=== PATIENT | male | born 1965 | race Caucasian/White ===

== ENCOUNTER 2019-12-22 21:11 | Inpatient (IN) | payer BC, SELFPAY ==
[2019-12-22] VITALS (9 sets, daily range): BP systolic 70–109; BP diastolic 46–64; PULSE 39–67; RESP 10–19; TEMP 36.7–37.1; O2SAT 95–100
--- NOTE | ~2019-12-22 | CT_ITS ---
EXAMINATION: CT brain wo con DATE: 12/23/2019 00:16 INDICATION: Dizziness. Bradycardia. Nausea. TECHNIQUE: Computed tomography (CT) of the head was performed without intravenous contrast. Sagittal and coronal reconstructions were performed. The mA was adjusted according to patient size. Iterative reconstruction technique was employed. The dose-length product was 681.00 mGy-cm. COMPARISON: None FINDINGS: No acute intracranial hemorrhage, acute infarction or abnormal extra axial fluid collection. There is mild scattered white matter hypoattenuation consistent with chronic small vessel ischemic disease. Ventricles are normal and symmetric. No mass/mass effect. The orbits, paranasal sinuses and mastoid a ir cells are normal. IMPRESSION: 1. No acute intracranial process. 2. Mild scattered white matter hypoattenuation consistent with chronic small vessel ischemic disease. Reviewed, dictated and finalized at location A. BULANCE PARAMEDIC IMPRESSION: 1. No acute intracranial process. 2. Mild scattered white matter hypoattenuation consistent with chronic small ve ssel ischemic disease.
--- NOTE | ~2019-12-22 | XR_ITS ---
EXAMINATION: XR chest 1V portable DATE: 12/22/2019 23:29 INDICATION: Chest pain, cough and shortness of breath TECHNIQUE: frontal view of the chest was obtained. COMPARISON: None FINDINGS: No focal airspace opacities, pleural effusion or pneumothorax. The cardiomediastinal silhouette is no rmal. IMPRESSION: 1. No acute cardiopulmonary disease. Reviewed, dictated and finalized at location A. CIATE DEAN
--- NOTE | 2019-12-22 21:17 | ECG_ITS ---
Measurements Intervals [place] Rate: 41 P: [place]: 0 QRS: 126 QRSD: 114 T: 71 QT: 462 QTc: 386 Interpretive Statements JUNCTIONAL RHYTHM RIGHT AXIS DEVIATION INTRAVENTRICULAR CONDUCTION DELAY BORDERLINE R WAVE PROGRESSION, ANTERIOR LEADS BORDERLINE ST-T WAVE ABNORMALITY- LATERAL LEADS BASELINE ARTIFACT- I, II, III, AVL, AVF, V1, V3 ABNORMAL ECG Electronically Signed On 12-23-2019 6:58:03 ACCOUNT SUPPORT ANALYST by Jeferson Florence D.O.
--- NOTE | 2019-12-22 21:28 | ED.DIZZY ---
HPI - Dizziness General Chief Complaint: Dizziness Stated Complaint: sob Time Seen by Provider: 12/22/19 21:27 Source: patient and RN notes reviewed Mode of arrival: ambulatory Limitations: no limitations History of Present Illness HPI Narrative: Pt is a 54 y/o male who presents to the ED with c/o lightheadedness starting this evening. He notes that he had a similar episode of lightheadedness roughly 1 week ago, and states that he has subsequently stopped taking his medications for the past week. Pt notes that he began taking his medications again around 10 AM this morning. He states that he hasn't eaten anything since breakfast today, noting that he hasn't had much of an appetite. Pt states that he has had intermittent lightheadedness, mild chest discomfort, generalized weakness, and SOB since 17:30 this evening. He notes that he develops lightheadedness and an urge to have a BM when he stands up. Pt denies any diarrhea. MD elicited complaint: lightheadedness Onset (ago): hour(s) (4) Description: lightheadedness History of similar symptoms: Yes Exacerbating factors: change in body position Associated symptoms: shortness of breath and other (chest discomfort; decreased intake; generalized weakness) Related Data Allergies Allergy/AdvReac Type Severity Reaction Status Date / Time No Known Allergies Allergy Verified 12/22/19 21:24 Review of Systems Review of Systems: All systems reviewed & are unremarkable except as noted in HPI and below Constitutional: Constitutional: Reports weakness (generalized) and Reports other (decreased intake) Cardiovascular: Cardiovascular: Reports other (chest discomfort) Respiratory: Respiratory: Reports dyspnea Gastrointestinal: Gastrointestinal: Denies diarrhea Neurologic: Reports other (lightheadedness) [facility] Past Medical History Medical History (Updated 12/23/19 @ 00:14 by Celso Izaguirre MD) HLD (hyperlipidemia) HTN (hypertension) Surgical History Surgical History (Updated 12/23/19 @ 00:07 by Piotr Moore MD) History of appendectomy Surgical history unknown Comments Business Quality Assurance Analyst is Dr. Ramon Camargo. Exam Cardio: Rate: bradycardic Heart sounds: no murmurs Course Course Emergency Course: Shortly after my initial evaluation he became more bradycardic, hypotensive, and diaphoretic. Repeat EKG clearly demonstrated no P-wave. Attempted atropine without success. I ordered glucagon and insulin for possible AV hanny blockade. I was told that we had run out of both of those medications. After multiple calls to the pharmacy they eventually were able to get us the medications. After administration he returned to sinus. Consultations Consultation #1: Discussed case with rubber thread spooler, Dr. Pradhan. Admit to the hospitalist and they will consult. Date: 12/22/19 Time: 22:44 Consultation #2: Discussed case with hospitalist, Dr. Moore. Accepted admission. Date: 12/22/19 Time: 23:03 Vital Signs Vital signs: Vital Signs Temperature 36.7 C 12/22/19 21:14 Pulse Rate 43 L 12/22/19 21:14 Respiratory Rate 16 12/22/19 21:14 Blood Pressure 93/46 L 12/22/19 21:14 Pulse Oximetry 99 12/22/19 21:14 Temperature 37.1 C 12/22/19 21:31 Pulse Rate 62 12/22/19 23:46 Respiratory Rate 19 12/22/19 22:45 Blood Pressure 103/63 12/22/19 23:46 Pulse Oximetry 96 12/22/19 22:45 MDM - Dizziness Differential Diagnosis Differential diagnosis: Likely adverse reaction to drug, orthostatic hypotension and other (NSTEMI, vasvagal episode) Medical Records Attestation: I reviewed the patient's medical records. Lab Data Attestation: I reviewed the patient's lab results. Result diagrams: 12/22/19 21:48 12/22/19 21:48 Labs: Lab Results 12/22/19 12/22/19 12/22/19 Range/Units 21:46 21:46 21:48 WBC 13.2 H (4.5-10.0) K/mm3 RBC 5.23 (4.6-6.20) M/mm3 Hgb 15.4 (14.0-18.0) g/dL Hct 45.3 (42.0-52.0) % MCV 86.6 (80-100) fl M
[2019-12-22] MEDS: ONDANSETRON INJ 4 MG/2 ML VIAL IV PUSH (21:48)
[2019-12-22] MEDS: SODIUM CHLORIDE 0.9% IV 2,000 ML 999 ML IV CONT (21:48)
[2019-12-22 21:55] LABS: Basophils Absolute Auto 0.1 K/mm3 (0.0-0.1); Basophils Percent Auto 0.4 % (0.2-1.2); Eosinophils Absolute Auto 0.1 K/mm3 (0-0.3); Eosinophils Percent Auto 0.4 % (0-4.4); Hematocrit 45.3 % (42.0-52.0); Hemoglobin 15.4 g/dL (14.0-18.0); Immature Granulocyte Absolute 0.05 K/mm3 (0.00-0.031); Immature Granulocyte Percent A 0.4 % (0-0.5); Lymphocytes Absolute Auto 2.13 K/mm3 (0.9-3.2); Lymphocytes Percent Auto 16.2 % (18.3-44.2); Mean Corpuscular Hemoglobin 29.4 pg (26-34); Mean Corpuscular Volume 86.6 fl (80-100); Mean Platelet Volume 9.9 fl (7.4-10.4); Monocytes Absolute Auto 1.1 K/mm3 (0.1-0.6); Monocytes Percent Auto 8.4 % (2.6-8.5); Neutrophils Absolute Auto 9.8 K/mm3 (1.3-6.7); Neutrophils Percent Auto 74.2 % (45.5-73.1); Platelet Count Result 240 k/mm3 (150-375); Red Blood Count 5.23 M/mm3 (4.6-6.20); Red Cell Distribution Width 13.7 % (11.5-14.5); White Blood Count 13.2 K/mm3 (4.5-10.0)
[2019-12-22 22:06] LABS: Prothrombin Time 12.7 Seconds (11.1-14.7)
[2019-12-22 22:07] LABS: Partial Thromboplastin Time 33.7 SECONDS (22.3-36.8)
[2019-12-22 22:07] LABS: Blood Urea Nitrogen 16 mg/dL (9-20); Calcium 9.2 mg/dL (8.4-10.2); Carbon Dioxide 21 mmol/L (22-30); Chloride 102 mmol/L (98-107); Estimated Glomerular Filt Rate 42; Glucose 149 mg/dL (75-110); Potassium 3.9 mmol/L (3.4-5.0); Sodium 137 mmol/L (137-145)
[2019-12-22 22:19] LABS: Troponin I < 0.012 ng/mL (0.000-0.034)
[2019-12-22] MEDS: DEXTROSE 50% 25 GM/50 ML SYRINGE IV PUSH (22:19)
[2019-12-22] MEDS: ATROPINE SULFATE 1 MG/10 ML SYRINGE (22:20)
[2019-12-22] MEDS: INSULIN HUMAN REGULAR (*BKC) 100 UNITS/ML 10 UNITS IV PUSH (22:24)
[2019-12-22] MEDS: GLUCAGON FOR INJ 1 MG VIAL 5 MG IV PUSH (22:26)
--- NOTE | 2019-12-22 22:36 | ECG_ITS ---
Measurements Intervals [place] Rate: 37 P: [place]: 0 QRS: 120 QRSD: 107 T: 68 QT: 507 QTc: 400 Interpretive Statements SLOW JUNCTIONAL RHYTHM INCOMPLETE RIGHT BUNDLE BRANCH BLOCK BORDERLINE R WAVE PROGRESSION, ANTERIOR LEADS ABNORMAL ECG Electronically Signed On 12-23-2019 7:01:22 CAB DRIVER by Jeferson Florence D.O.
[2019-12-22] MEDS: ONDANSETRON INJ 4 MG/2 ML VIAL (22:43)
--- NOTE | 2019-12-22 22:43 | ECG_ITS ---
Measurements Intervals [place] Rate: 67 P: 46 MN: 188 QRS: 262 QRSD: 113 T: 48 QT: 430 QTc: 455 Interpretive Statements SINUS RHYTHM RIGHT AXIS DEVIATION INCOMPLETE RIGHT BUNDLE BRANCH BLOCK LOW VOLTAGE- LIMB LEADS BORDERLINE R WAVE PROGRESSION, ANTERIOR LEADS BASELINE ARTIFACT- I, II, III, AVL, AVF, V1 BORDERLINE ECG Electronically Signed On 12-23-2019 7:03:02 MARINE CHRONOMETER ASSEMBLER by Jeferson Florence D.O.
--- NOTE | 2019-12-22 22:46 | PC.NURSE ---
At 2199 Patient stated he felt like he was going to pass out. EDP in room as well as this nurse. At 2200 VORB per give 1mg atropine IVP. No change in patient's HR. At [address] Izaguirre give 2 amps of D50, 10 units of regular insulin, and 5mg of Glucagon. Patient started to have change in HR, slight increase. EPD in room with this nurse and the patient. Patient has IV fluids going via gravity. At 2224 VORB per EDP obtain bedside glucose. At 2229 patient did start to vomit so VORB per EDP give 4mg of Zofran IVP per . Patient had approx 400ml emesis output. Patient resting on stretcher. Patient's family at bedside. Patient a/o x4. Patient states he does still feel dizzy.
[2019-12-22] MEDS: ATROPINE SULFATE 1 MG/ML VIAL IV PUSH (23:23)
[2019-12-23] VITALS (11 sets, daily range): BP systolic 103–121; BP diastolic 55–68; PULSE 51–65; RESP 18–20; TEMP 36.6–36.8; O2SAT 93–97; BMI 31.7
--- NOTE | 2019-12-23 | ECHO_ITS ---
Patient Info Name: Jacqeus Zamora Age: 54 years : 1965 Gender: Male Ht: 75 in Wt: 250 lbs BSA: 2.48 m2 HR: 60 bpm BP: 115 / 61 mmHg Heart Rhythm: Bradycardia Technical Quality: Good Exam Date: 12/23/2019 9:11 AM Exam Location: [facility] Patient Status: Inpatient Admit Date: 12/22/2019 Staff Ordering Physician: Piotr Moore MD Lead Software Test Engineer: Christian Moreira RDCS Attending Provider: Piotr Moore MD Referring Physician: Teresa TREVIZO; Exam Type: CA echo doppler color flow Study Info Indications R00.1 - Bradycardia, unspecified Complete two-dimensional, color flow and Doppler transthoracic echocardiogram is performed. Strain analysis performed. History/Risk Factors Symptomatic bradycardia; CAD and HTN. Summary 1. Left ventricular chamber dimension is normal. 2. Left ventricular systolic function is normal, estimated at 65-70%. 3. There is moderately increased left ventricular wall thickness. 4. The left ventricular diastolic function is grade II diastolic dysfunction. 5. Left atrial chamber dimension is mildly enlarged. 6. There is mild aortic valve calcification. 7. There is mild mitral valve regurgitation. 8. There is mild tricuspid valve regurgitation. 9. Mild pulmonary hypertension, estimated pulmonary arterial systolic pressure is 37 mmHg. Left Ventricle Left ventricular chamber dimension is normal. Left ventricular systolic function is normal, estimated at 65-70%. There is moderately increased left ventricular wall thickness. The left ventricular diastolic function is grade II diastolic dysfunction. Right Ventricle Right ventricular chamber dimension is normal. Right ventricular systolic function is normal. Left Atria Left atrial chamber dimension is mildly enlarged. Right Atria Right atrial chamber dimension is normal. Aortic Valve The aortic valve is trileaflet. There is no aortic valve stenosis. There is trace aortic valve regurgitation. There is mild aortic valve calcification. Pulmonic Valve The pulmonic valve is normal. There is no pulmonic valve stenosis. There is trace pulmonic regurgitation. Mitral Valve The mitral valve has normal leaflets and calcified annulus. There is no mitral valve stenosis. There is mild mitral valve regurgitation. Tricuspid Valve The tricuspid valve leaflets are normal. There is no significant tricuspid valve stenosis. There is mild tricuspid valve regurgitation. Mild pulmonary hypertension, estimated pulmonary arterial systolic pressure is 37 mmHg. Pericardium/Pleural The pericardium appears normal. There is trivial pericardial effusion. Inferior Vena Cava Normal inferior vena cava with <50% collapse upon inspiration consistent with elevated right atrial pressure, 10 mmHg. Aorta The aortic root size at the sinus of Valsalva is normal. The prox ascending aorta size is normal. Left Ventricular Outflow Tract Name Value Normal LVOT 2D LVOT Diameter 2.2 cm LVOT Doppler LVOT Peak Gradient 8 mmHg LVOT Mean Gradient 4 mmHg LVO
--- NOTE | 2019-12-23 | PM.IMHP ---
H&P: HPI History of Present Illness Chief complaint: symptomatic bradycardia Narrative: This is a 54 year old male with known CAD+, HTN, hyperlipidemia who presented to the hospital with a complaint of dizziness and feeling like he was going to pass out earlier today. The patient began to feel dizzy around 5:30 pm while he was walking around at home and decided to go lie down. Every time he tried to get up from his bed he felt like he was going to black out and decided to call EMS. The patient was gilmar to the hospital and found to be in a junctional bradycardia. His bradycardia worsened and he became hypotensive. The patient did respond to glucagon. He converted back to a sinus rhythm and his blood pressure normalized. The patient mentioned that today he took his Verapamil and Bystolic around 10 am but hasn't been on these medications for the past 7-10 days. He also had a similar episode of near syncope about 3 weeks ago while he was on these medications but never went to the doctor at that time. Associated symptoms tonight included nausea and mild headache but no chest pain, palpitations, numbness, tingling, blurry vision, abdominal pain, vomiting, dysuria, hematuria, diarrhea, rectal bleeding, LE swelling, or focal weakness. He denies any recent head trauma or seizure like activity. Cardiology has been consulted by ER provider. Review of Systems Review of Systems: All systems reviewed & are unremarkable except as noted in HPI and below PMFSH Past Medical History Medical History (Updated 12/23/19 @ 09:56 by Jacinto Omer MD) Coronary artery disease HLD (hyperlipidemia) HTN (hypertension) Surgical History Surgical History History of appendectomy Surgical history unknown Family History Family History Mother Heart disease Hypertension Dementia Father Heart disease Hypertension Social History Social History Smoking packs per day: 1 Smoking cigarettes per day: 20.0 Years smoked: 40 Smoking pack-years: 40.00 Smoking status: Current every day smoker Tobacco type: cigarettes Alcohol intake: current Drinks per week: 12 Gender identity (if verbalized by the patient): Male Spiritual care concerns: No Agree to blood products: Yes Meds Home Medications and Allergies Home Medications Medication Instructions Recorded Confirmed Type Vascepa 2 g PO BID 12/23/19 12/23/19 History aspirin [Aspir-81] 81 mg PO DAILY 12/23/19 12/23/19 History clopidogrel 75 mg PO DAILY 12/23/19 12/23/19 History niacin [Endur-Acin] 750 mg PO BID 12/23/19 12/23/19 History ramipril [Altace] 5 mg PO Q12HR #60 cap 12/23/19 Rx simvastatin 40 mg PO DAILY 12/23/19 12/23/19 History Allergies Allergy/AdvReac Type Severity Reaction Status Date / Time No Known Allergies Allergy Verified 12/22/19 21:24 Vital Signs Vital Signs - 24 hr 12/22/19 21:14 12/22/19 21:19 12/22/19 21:25 Temperature 36.7 C Pulse Rate 43 L 42 L Respiratory Rate 16 12 Blood Pressure 93/46 L 99/57 L Pulse Oximetry 99 100 100 12/22/19 21:31 12/22/19 22:12 12/22/19 22:34 Temperature 37.1 C Pulse Rate 42 L 39 L 64 Respiratory Rate 10 L 13 16 Blood Pressure 97/64 L 70/46 L 95/54 L Pulse Oximetry 99 95 99 12/22/19 22:45 12/22/19 23:45 12/22/19 23:46 Temperature Pulse Rate 67 64 62 Respiratory Rate 19 Blood Pressure 106/64 109/64 103/63 Pulse Oximetry 96 Exam Const: General: cooperative, healthy appearing, no acute distress, alert and awake Nutritional Appearance: well nourished Orientation/consciousness: patient oriented x3 HENMT: Head: normal to inspection General nose exam: Normal external nose present Face and sinus: normal facial exam Mouth: Yes Normal oral and palatal mucosa present and Yes oropharynx normal Eyes: Pupils
[2019-12-23] MEDS: SODIUM CHLORIDE 0.9% IV 1,000 ML 100 ML IV CONT ×2 (00:27→09:43)
--- NOTE | 2019-12-23 01:05 | ADMGEN ---
This patient, Jacques Zamora, was admitted to IMU Room 210-01 from ER 12/23/19 0020. Patient/family oriented to hospital policies and general routines including ID bracelet, bed and alarms, visiting hours, pain management, procedures, bathroom and other care routines, personal items, smoking policy, room service/diet, and visiting hours. Valuables list has been completed. Information on how to activate the Rapid Response Team has been discussed. Patient/Family are encouraged to report perceived risks to care and to ask questions if they do not understand what they are told or what they should do.
[2019-12-23 01:30] LABS: Glucose Point of Care 310 (65-105)
[2019-12-23 04:54] LABS: Basophils Percent Auto 0.3 % (0.2-1.2); Eosinophils Percent Auto 0.2 % (0-4.4); Hematocrit 38.9 % (42.0-52.0); Immature Granulocyte Absolute 0.06 K/mm3 (0.00-0.031); Immature Granulocyte Percent A 0.5 % (0-0.5); Lymphocytes Absolute Auto 1.77 K/mm3 (0.9-3.2); Lymphocytes Percent Auto 15.6 % (18.3-44.2); Mean Corpuscular HGB Conc 33.4 g/dl (32-36); Mean Corpuscular Hemoglobin 29.3 pg (26-34); Mean Corpuscular Volume 87.8 fl (80-100); Monocytes Absolute Auto 0.9 K/mm3 (0.1-0.6); Monocytes Percent Auto 8.3 % (2.6-8.5); Neutrophils Absolute Auto 8.5 K/mm3 (1.3-6.7); Neutrophils Percent Auto 75.1 % (45.5-73.1); Platelet Count Result 175 k/mm3 (150-375); Red Blood Count 4.43 M/mm3 (4.6-6.20); Red Cell Distribution Width 13.8 % (11.5-14.5); White Blood Count 11.3 K/mm3 (4.5-10.0)
[2019-12-23 05:15] LABS: Blood Urea Nitrogen 15 mg/dL (9-20); Calcium 8.2 mg/dL (8.4-10.2); Carbon Dioxide 20 mmol/L (22-30); Chloride 111 mmol/L (98-107); Estimated CRCL calculation 78 ml/min; Estimated Glomerular Filt Rate 57; Glucose 89 mg/dL (75-110); Potassium 4.3 mmol/L (3.4-5.0); Sodium 138 mmol/L (137-145)
[2019-12-23 05:56] LABS: Thyroid Stimulating Hormone Reflex 0.692 uIU/mL (0.465-4.68)
[2019-12-23] MEDS: SIMVASTATIN 20 MG TABLET 40 MG PO (08:26)
[2019-12-23] MEDS: CLOPIDOGREL BISULFATE 75 MG TABLET PO (08:26)
[2019-12-23] MEDS: OMEGA 3 POLYUNSAT FATTY ACIDS 1 GM CAP 2 GM PO (08:26)
[2019-12-23] MEDS: ASPIRIN 81 MG ENTERIC TABLET PO (08:26)
--- NOTE | 2019-12-23 09:49 | PM.CNCAR ---
Assessment and Plan Assessment and plan (1) Symptomatic bradycardia: Code(s): R00.1 - Bradycardia, unspecified Status: Acute Assessment and Plan: Improved. Likely exacerbated by combination of his Bystolic and verapamil. Both will be stopped for now. Heart rate is normal and blood pressure has normalized. I will check a TSH and free T4 levels. 2D echocardiogram with Doppler also be ordered. Because his symptoms have occurred as an outpatient and also while driving, I have advised that he not drive for the time being until it is assure that he does not have recurrent symptomatic bradycardia with these adjustments of medications (2) HLD (hyperlipidemia): Qualifiers: Hyperlipidemia type: unspecified Qualified Code(s): E78.5 - Hyperlipidemia, unspecified Code(s): E78.5 - Hyperlipidemia, unspecified Status: Acute Assessment and Plan: On statin (3) HTN (hypertension): Qualifiers: Hypertension type: unspecified Qualified Code(s): I10 - Essential (primary) hypertension Code(s): I10 - Essential (primary) hypertension Status: Acute Assessment and Plan: Currently at goal but likely will need more antihypertensive regimen changes as an outpatient (4) Coronary artery disease: Code(s): I25.10 - Atherosclerotic heart disease of [place] coronary artery without angina pectoris Status: Acute Assessment and Plan: Continue aspirin, clopidogrel, statin, LISA-inhibitor and Vascepa (5) Acute renal failure: Qualifiers: Acute renal failure type: unspecified Qualified Code(s): N17.9 - Acute kidney failure, unspecified Code(s): N17.9 - Acute kidney failure, unspecified Status: Acute Assessment and Plan: Improved today. Restart ramipril at 5 mg p.o. b.i.d. History of Present Illness History of Present Illness Consult date/time: 12/23/19 09:49 Requesting physician: Celso Izaguirre MD Consult reason: Other (Bradycardia) Reason For Visit: symptomatic bradycardia Narrative: Date of service 12/23/2019 History: Patient is a 54-year-old male with a known history of coronary disease, hypertension hyperlipidemia who follows with Dr. Camargo at [facility]. He came to the hospital because dizziness and lightheadedness as well as some chest pain. Patient states that he has been on verapamil and Bystolic for several years. His Bystolic dose has been increased recently as his beef cattle farm manager's is wanting his blood pressure to be less than 120 systolic. He will intermittently have episodes of severe dizziness and presyncope. He had some significant episodes about 3 weeks ago and has had episodes even while driving. He has not actually lost consciousness though. He actually quit taking the verapamil and Bystolic over the past 10 days. He subsequently felt very well but did take both of these medications yesterday. Shortly thereafter he became dizzy lightheaded and felt as if he could pass out. Symptoms were worsened when standing. He did not actually pass out though. He did have some mild chest discomfort and for all the above reasons he came to the hospital for further workup evaluation. While in the emergency room, he was found to be in junctional bradycardia and hypotensive. Symptoms did respond to glucagon. He later reverted back to a sinus rhythm/sinus bradycardia is currently feeling much better. Blood pressure was as low as 70 systolic. He does have sleep apnea but is not being treated. He denies any paroxysmal nocturnal dyspnea, orthopnea, edema, syncope, palpitations. Chest discomfort improved which improved after sinus rhythm was restored. He was also short of breath during his episode yesterday. He is currently feeling normal at present Review of Systems Review of Systems: All systems reviewed & are unremarkable except as noted in HPI and below Constitutional: Constitutional: Reports weakness Eyes: Eyes: Sherice
[2019-12-23 11:05] LABS: Free T4 Free Thyroxine 1.19 ng/mL (0.78-2.19)
[2019-12-23] MEDS: NIACIN SA 250 MG CAPSULE 750 MG PO (11:18)
[2019-12-23] MEDS: ramipriL 5 MG CAPSULE PO (11:18)
--- NOTE | 2019-12-23 11:44 | PM.DS ---
DS: Diagnosis Admitting Diagnosis Admitting Diagnosis: Bradycardia, unspecified Discharge Diagnosis (1) Symptomatic bradycardia: Code(s): R00.1 - Bradycardia, unspecified Status: Acute Assessment and Plan: Admit to IMU, telemetry, Hold verapamil and bystolic. Strict Bedrest, Fall precautions, We will consider further glucagon, calcium gluconate, insulin and dextrose if necessary overnight. Cardiology has been consulted by ER provider. Appreciate Cardiology input. (2) Acute renal failure: Qualifiers: Acute renal failure type: unspecified Qualified Code(s): N17.9 - Acute kidney failure, unspecified Code(s): N17.9 - Acute kidney failure, unspecified Status: Acute Assessment and Plan: resolved (3) HLD (hyperlipidemia): Qualifiers: Hyperlipidemia type: unspecified Qualified Code(s): E78.5 - Hyperlipidemia, unspecified Code(s): E78.5 - Hyperlipidemia, unspecified Status: Acute Assessment and Plan: Resume home Simvastatin therapy. (4) HTN (hypertension): Qualifiers: Hypertension type: unspecified Qualified Code(s): I10 - Essential (primary) hypertension Code(s): I10 - Essential (primary) hypertension Status: Acute Assessment and Plan: The patient's blood pressure has normalized. Continuing ramipril at half of his original dose. DS: Summary Hospital Course Reason for hospitalization: Presyncope Hospital Course: Admitted for presyncopal episodes. Was using Bystolic and Calan SR intermittently, as well as ramipril 10mg bid. He was not compliant due to feeling poorly when he to time. Day of symptomatic bradycardia. Echocardiogram. CT. Chest x-ray and EKG will except for bradycardia. Negative troponins. Symptoms resolved with holding antihypertensives. He remained normotensive, in fact in the low normal range. He was up and about tolerating his diet and functioning independently. Status at Discharge Functional status at discharge: independent ambulation Overall status at discharge: patient is back to baseline Time Spent with Patient Time attestation: Total time spent providing and/or coordinating discharge services: 37 min Time spent: Greater than 30 minutes Exam Narrative: Exam Narrative: HEENT: EOMI, PERRL, pharyngeal mucosa pink and intact NECK: No JVD CHEST: Clear to auscultation. Normal effort. HEART: NL S1/S2, regular, no murmur ABDOMEN: BS+, soft, nontender, no mass, no bruits EXTREMITIES: No cyanosis, edema, or clubbing NEUROLOGIC: CN intact and symmetric to inspection. MUSCULOSKELETAL: Tone and strength symmetric. PSYCH: Alert. Oriented to person, place, and time. DS: Data Data Completed and Pending Labs on day of discharge: Labs from last 24 hours 12/23/19 12/23/19 12/23/19 04:26 04:26 04:26 WBC 11.3 H RBC 4.43 L Hgb 13.0 L Hct 38.9 L MCV 87.8 MCH 29.3 MCHC 33.4 RDW 13.8 Plt Count 175 MPV 10.0 Immature Gran % (Auto) 0.5 Neut % (Auto) 75.1 H Lymph % (Auto) 15.6 L [place] % (Auto) 8.3 Eos % (Auto) 0.2 Baso % (Auto) 0.3 Lymph # (Auto) 1.77 [place] # (Auto) 0.9 H Eos # (Auto) 0.0 Baso # (Auto) 0.0 Abs Immat Gran (auto) 0.06 H Absolute Neuts (auto) 8.5 H Absolute Nucleated RBC 0.0 Nucleated RBC % 0.0 PT INR APTT Sodium 138 Potassium 4.3 Chloride 111 H Carbon Dioxide 20 L BUN 15 Creatinine 1.30 Estim Creat Clear Calc 78 Estimated GFR 57 L Glucose 89 POC Capillary Glucose Calcium 8.2 L Troponin I TSH (Reflex) 0.692 Free T4 12/22/19 12/22/19 12/22/19 22:27 21:48 21:48 WBC 13.2 H RBC 5.23 Hgb 15.4 Hct 45.3 MCV 86.6 MCH 29.4 MCHC 34.0 RDW 13.7 Plt Count 240 MPV 9.9 Immature Gran % (Auto) 0.4 Neut % (Auto) 74.2 H Lymph % (Auto) 16.2 L [place] % (Auto) 8.4 Eos % (Auto) 0.4 Baso % (Auto) 0.4 Lymp
== END 2019-12-23 14:51 | disposition home or self-care (01) | DRG 309 ==
LOC: ANHED 23:09 → ANHIMU 12-23 00:03
PROVIDERS: Internal Medicine Cardiovascular Disease; Admitting Provider Family Medicine; Emergency Provider Emergency Medicine; Visit Provider Internal Medicine
DX: R00.1 Bradycardia, unspecified (principal); N17.9 Acute kidney failure, unspecified; I25.10 Atherosclerotic heart disease of native coronary artery without angina pectoris; E78.5 Hyperlipidemia, unspecified; I10 Essential (primary) hypertension
CPT/HCPCS: 36415; 70450; 71045; 80048; 84439; 84443; 84484; 85025; 85610; 85730; 87804; 93005; 93306; 96361; 96374; 96375; 96376; 99285; A9270; J0461; J1610; J1815; J2405; J7030

== ENCOUNTER 2019-12-26 16:10 | Emergency (ER) | payer BC, SELFPAY ==
--- NOTE | ~2019-12-26 | US_ITS ---
EXAMINATION: US venous doppler UE RT DATE: 12/26/2019 17:41 INDICATION: Right upper limb pain, swelling and discoloration TECHNIQUE: Grayscale images without and with compression and Doppler images of the right upper extrem ity veins were obtained. COMPARISON: None. FINDINGS: Noncompressible thrombosis in the right brachial and radial veins which appears nonocclusive with sma ll amount of residual flow within the vessel on color Doppler. The right internal jugular vein, subcl bib vein, axillary vein, basilic vein, cephalic vein, and ulnar vein are patent. IMPRESSION: 1. Venous thrombosis in the right radial vein at the wrist extending proximally to the brachial vein at the elbow. Reviewed, dictated and finalized at location A. STITCHER
--- NOTE | ~2019-12-26 | XR_ITS ---
EXAMINATION: XR wrist RT min 3V DATE: 12/26/2019 17:42 INDICATION: Lateral right wrist pain and swelling TECHNIQUE: Posteroanterior, ulnar deviation, oblique, and lateral views of the right wrist were obtai mikhail. COMPARISON: none FINDINGS: Alignment is normal. No fracture. Joint spaces are normal. Soft tissue swelling and subcutaneous luc a along the right forearm. IMPRESSION: 1. No osseous abnormality. Reviewed, dictated and finalized at location A. EACH DIRECTOR IMPRESSION: 1. No osseous abnormality.
[2019-12-26 16:41] VITALS: BP 179/112; PULSE 122; RESP 18; TEMP 36.9; O2SAT 98
[2019-12-26 17:06] LABS: Basophils Absolute Auto 0.1 K/mm3 (0.0-0.1); Basophils Percent Auto 0.6 % (0.2-1.2); Eosinophils Absolute Auto 0.2 K/mm3 (0-0.3); Eosinophils Percent Auto 1.9 % (0-4.4); Hemoglobin 16.3 g/dL (14.0-18.0); Immature Granulocyte Absolute 0.02 K/mm3 (0.00-0.031); Immature Granulocyte Percent A 0.2 % (0-0.5); Lymphocytes Absolute Auto 2.78 K/mm3 (0.9-3.2); Lymphocytes Percent Auto 31.1 % (18.3-44.2); Mean Corpuscular Hemoglobin 29.5 pg (26-34); Mean Corpuscular Volume 86.8 fl (80-100); Monocytes Absolute Auto 1.1 K/mm3 (0.1-0.6); Monocytes Percent Auto 11.9 % (2.6-8.5); Neutrophils Absolute Auto 4.9 K/mm3 (1.3-6.7); Neutrophils Percent Auto 54.3 % (45.5-73.1); Platelet Count Result 223 k/mm3 (150-375); Red Blood Count 5.53 M/mm3 (4.6-6.20); Red Cell Distribution Width 13.5 % (11.5-14.5); White Blood Count 8.9 K/mm3 (4.5-10.0)
[2019-12-26 17:16] LABS: Partial Thromboplastin Time 37.1 SECONDS (22.3-36.8)
[2019-12-26 17:25] LABS: Blood Urea Nitrogen 10 mg/dL (9-20); Calcium 10.2 mg/dL (8.4-10.2); Carbon Dioxide 26 mmol/L (22-30); Chloride 104 mmol/L (98-107); Estimated CRCL calculation 99 ml/min; Estimated Glomerular Filt Rate > 60; Glucose 96 mg/dL (75-110); Lactic Acid Reflex 1.4 mmol/L (0.7-2.1); Sodium 141 mmol/L (137-145)
[2019-12-26 18:34] LABS: INR 0.9
--- NOTE | 2019-12-26 19:33 | ED.UPPEXIN ---
HPI - Extremity Injury (Upper) General Chief Complaint: Extremity Injury, Upper Stated Complaint: swollen right arm and hand Time Seen by Provider: 12/26/19 19:25 Source: patient Mode of arrival: ambulatory Limitations: no limitations History of Present Illness HPI narrative: A 54 y/o male presents to the ED with c/o RUE swelling and pain. Pt states that the RUE swelling and pain started on 12/24/19 and has been constant since. He adds that he was admitted to [facility] on 12/22/19 for heart issues. Pt had an IV placed in his right arm and was discharged on 12/23/19. He is currently on Plavix. Pt denies CP and SOB. He took a Tylenol at 1630 with no relief. Pt has no other complaints at this time. He denies chest pain or shortness of breath. No numbness. Mild right aching arm pain. No decreased movement. MD complaint: injury to: right and arm Onset (ago): day(s) (2) Other Extremity Injury: Right: arm Relieving factors: none Context: other (Recent hospitalization) Associated symptoms: denies other symptoms Treatments prior to arrival: other (Tylenol) Related Data Home Medications Medication Instructions Recorded Confirmed Vascepa 2 g PO BID 12/23/19 12/23/19 aspirin [Aspir-81] 81 mg PO DAILY 12/23/19 12/23/19 clopidogrel 75 mg PO DAILY 12/23/19 12/23/19 niacin [Endur-Acin] 750 mg PO BID 12/23/19 12/23/19 simvastatin 40 mg PO DAILY 12/23/19 12/23/19 Allergies Allergy/AdvReac Type Severity Reaction Status Date / Time No Known Allergies Allergy Verified 12/22/19 21:24 Review of Systems Review of Systems: Narrative: CONSTITUTIONAL: Denies fever, chills, or sweats. CARDIOVASCULAR: Denies chest pain, palpitations, or edema. RESPIRATORY: Denies cough or dyspnea. GASTROINTESTINAL: Denies abdominal pain, nausea, vomiting, or diarrhea. SKIN: Reports mild erythema to the right upper extremity MUSCULOSKELETAL: Denies back pain, joint pain, or myalgia. Reports RUE swelling and pain. NEUROLOGIC: Denies headache, numbness, or weakness. All systems reviewed & are unremarkable except as noted in HPI and below [facility] Past Medical History Medical History (Updated 12/26/19 @ 19:52 by Zonia Leung MD) Coronary artery disease HLD (hyperlipidemia) HTN (hypertension) Surgical History Surgical History (Updated 12/26/19 @ 19:42 by Bren Paredes) History of appendectomy Family History Family History Mother Heart disease Hypertension Dementia Father Heart disease Hypertension Social History Social History Smoking packs per day: 1 Smoking cigarettes per day: 20.0 Years smoked: 40 Smoking pack-years: 40.00 Smoking status: Current every day smoker Tobacco type: cigarettes Alcohol intake: current Drinks per week: 12 Gender identity (if verbalized by the patient): Male Spiritual care concerns: No Agree to blood products: Yes Exam Narrative: Exam Narrative: GENERAL: Well-appearing, well-nourished, and in no acute distress. HEAD: Normocephalic, atraumatic. EYES: PERRLA and EOMI. ENT: Nares clear, no rhinorrhea or epistaxis. Mucous membranes moist. NECK: Supple. CHEST: Clear to auscultation. No respiratory distress. HEART: Mild tachycardia. No murmur heard. Normal peripheral pulses. Radial pulses 2+. ABDOMEN: Soft, nontender, nondistended, normal active bowel sounds. EXTREMITIES: Normal range of motion. No edema. No calf tenderness. SKIN: Warm, dry, no rash. Right forearm edema with mild erythema and tenderness. Intact sensation, median, ulnar, radial nerve distribution. NEURO: No focal deficits. Alert and oriented X3. Course Vital Signs Vital signs: Vital Signs Temperature 36.9 C 12/26/19 16:41 Pulse Rate 122 H 12/26/19 16:41 Respiratory Rate 18 12/26/19 16:41 Blood Pressure 179/112 H 12/26/19 16:41 Pulse Oximetry 98 12/26/19 16:41 Temperature 36.9 C 12/26/19 16:41 Pulse Rate
[2019-12-26 20:18] VITALS: BP 150/116; PULSE 106; RESP 18; O2SAT 97
== END 2019-12-26 20:19 | disposition home or self-care (01) ==
PROVIDERS: Emergency Medicine; Emergency Provider Emergency Medicine
DX: T80.1XXA Vascular complications following infusion, transfusion and therapeutic injection, initial encounter (principal); I82.621 Acute embolism and thrombosis of deep veins of right upper extremity; I25.10 Atherosclerotic heart disease of native coronary artery without angina pectoris; E78.5 Hyperlipidemia, unspecified; I10 Essential (primary) hypertension; F17.210 Nicotine dependence, cigarettes, uncomplicated; Z79.02 Long term (current) use of antithrombotics/antiplatelets; Z79.82 Long term (current) use of aspirin
CPT/HCPCS: 36415; 73110; 80048; 83605; 85025; 85610; 85730; 87040; 93971; 99284